=== PATIENT | male | born 1935 | race Caucasian/White ===

== ENCOUNTER 2017-12-23 15:40 | Outpatient (CLI) | payer MEDICARE, BC, OTHER | END 2017-12-23 23:59 | disposition home or self-care (01) | LOC: RAD 15:40 | PROVIDERS: ATTEND Nurse Practitioner Family | DX: K59.00 Constipation, unspecified (principal); I10 Essential (primary) hypertension; Z87.891 Personal history of nicotine dependence | CPT/HCPCS: 74021 ==